=== PATIENT | male | born 1955 | race Caucasian/White ===

== ENCOUNTER 2017-12-01 06:19 | Day surgery (SDC) | payer BC ==
[2017-12-01] MEDS ORDERED: Sodium Chloride 0.9% 10 ML Syringe FLUSH PRN (06:45)
[2017-12-01] MEDS ORDERED: Lactated Ringers 1,000 ML IV SCH (06:45)
[2017-12-01] MEDS ORDERED: Propofol 200 MG/20 ML SDV IV ONE (08:00)
[2017-12-01] MEDS ORDERED: Midazolam 1 MG/ML 2 ML SDV IV ONE (08:00)
--- NOTE | 2017-12-01 08:37 | PCM.OPNOTE ---
- General Post-Op/Procedure Note Date of Surgery/Procedure: 12/01/17 Operative Procedure(s): c scope with bx Findings: sigmoid polyp descending colon polyp diverticulosis Pre Op Diagnosis: hx of colon polyps Post-Op Diagnosis: sigmoid polyp. descending colon polyp. diverticulosis Anesthesia Technique: MAC Primary Surgeon: Emmanuel He Anesthesia Provider: Dona Treviño Pathology: sigmoid polyp descending colon polyp Complications: None Condition: Good Free Text/Narrative:: see dictation #[id number]
--- NOTE | 2017-12-01 09:35 | OR ---
DATE OF OPERATION: 12/01/2017 SURGEON: Emmanuel He MD PROCEDURES PERFORMED: Colonoscopy with cold forceps biopsy. PREOPERATIVE DIAGNOSIS: Personal history of colon polyps. POSTOPERATIVE DIAGNOSES: Scattered diverticulosis and polyp of the descending colon and sigmoid colon. INDICATIONS FOR PROCEDURE: This is a 62-year-old white male who presents for a followup colonoscopy. He has a personal history of colon polyps, was offered and accepted C-scope. DESCRIPTION OF PROCEDURE: After an excellent IV sedation was administered, digital rectal exam was performed. No marked abnormality was noted. The flexible colonoscope was inserted and advanced to the cecum without difficulty. The prep was excellent. The following findings were noted. Ascending colon, occasional diverticula. Transverse colon, occasional diverticula. Descending colon, occasional diverticula and a small polypoid lesion, biopsied with cold biopsy forceps and sent for permanent. Sigmoid, very mild diverticulosis, small polyp biopsied with cold biopsy forceps and sent for permanent. Rectum unremarkable. Colon was deflated as the scope was removed. The patient tolerated the procedure well and was taken to Recovery. Results by letter. Follow up on the basis of pathology report. /[id number] /MODL
== END 2017-12-01 09:35 | disposition home or self-care (01) ==
LOC: FB.SDS 06:19
PROVIDERS: ATTEND Surgery
DX: Z12.11 Encounter for screening for malignant neoplasm of colon (principal); D12.4 Benign neoplasm of descending colon; D12.5 Benign neoplasm of sigmoid colon; J45.909 Unspecified asthma, uncomplicated; E78.5 Hyperlipidemia, unspecified; K57.30 Diverticulosis of large intestine without perforation or abscess without bleeding; Z86.010 Personal history of colon polyps; Z79.51 Long term (current) use of inhaled steroids; Z79.899 Other long term (current) drug therapy
CPT/HCPCS: 88305; J2250; J2704; J7120

== ENCOUNTER 2020-08-16 07:28 | Day surgery (SDC) | payer BC, MEDICARE ==
[2020-08-16] MEDS ORDERED: Lidocaine 2% 5 ML SDV INJECT ONE (07:29)
[2020-08-16] MEDS ORDERED: Midazolam 1 MG/ML 2 ML SDV IV ONE (07:29)
[2020-08-16] MEDS ORDERED: Propofol 200 MG/20 ML SDV IV ONE (07:29)
[2020-08-16] MEDS ORDERED: Sodium Chloride 0.9% 10 ML Syringe FLUSH PRN (07:30)
[2020-08-16] MEDS ORDERED: Lactated Ringers 1,000 ML IV SCH (07:30)
--- NOTE | 2020-08-16 09:29 | PCM.SN.2 ---
- Free Text/Narrative Note: Pt with persistent diarrhea. Hx of lymphocytic colitis in the past. There has been no response to treatment. He is for an egd as well as c scope. egd to be able to bx the duodenum. will attempt to intubate the terminal ileum as well. procedures and risks explained to the pt to include bleeding infection and perforation. expressed understanding and asks us to proceed.
--- NOTE | 2020-08-16 09:38 | PCM.OPNOTE ---
- General Post-Op/Procedure Note Date of Surgery/Procedure: 08/16/20 Operative Procedure(s): egd with cold forceps biopsy. c scope with intubation of terminal ileum with cold forceps biopsy Findings: nl appearing duodenum, terminal ileum gastritis irregular z line scattered diverticulosis nl appearing colonic mucosa. Pre Op Diagnosis: hx of lymphocytic colitis. hx of persistent diarrhea Anesthesia Technique: [facility] [place] Primary Surgeon: Emmanuel He Anesthesia Provider: Dona Treviño Pathology: duodenum stomach esophagus random bx of terminal ileum and colon Complications: None Condition: Good Free Text/Narrative:: see dictation #[id number]
--- NOTE | 2020-08-16 11:34 | OR ---
DATE OF OPERATION: 08/16/2020 SURGEON: Emmanuel He MD PROCEDURE PERFORMED: EGD and colonoscopy, both cold forceps biopsy. PREOPERATIVE DIAGNOSIS: History of lymphocytic colitis, persistent diarrhea despite treatment. POSTOPERATIVE DIAGNOSES: 1. Gastritis, irregular Z-line. 2. Normal-appearing terminal ileum, duodenum, and colonic mucosa, scattered colonic diverticulosis. INDICATIONS FOR PROCEDURE: Mr. Puga is a 64-year-old white male who has had a history of persistent diarrhea. He has a known history of lymphocytic colitis and the diarrhea has persisted despite treatment with various treatment regimens. He was offered and accepted an upper and lower endoscopy; one, to rule out possible celiac disease and two, to obtain random biopsies of his terminal ileum as well as colon to help in further diagnosis of what maybe the underlying cause of his loose stools. DESCRIPTION OF PROCEDURE: After an excellent IV sedation was administered by Anesthesia, a bite block was inserted. The flexible endoscope was passed without difficulty down the patient's esophagus into the stomach. Stomach was insufflated. Scope passed through the pylorus, second portion of duodenum and slowly withdrawn. The following findings were noted: The duodenum was grossly within normal limits. Random biopsies were taken to rule out celiac disease. Stomach, diffuse gastritis was noted. Random biopsies were taken. GE junction measured approximately 40 cm, but he did have an irregular Z-line and multiple biopsies were taken of the tongues of what appeared to be intestinal metaplasia. The remainder of the esophageal exam was unremarkable. Our attention was then turned to the patient's colon after deflating the stomach and removing it. Digital rectal exam was essentially unremarkable. The flexible colonoscope was inserted and advanced to the cecum. The prep was excellent. We were able to intubate the terminal ileum and advanced the scope approximately 5 cm. Following findings noted: The terminal ileum was unremarkable, random biopsies were taken. The colon unremarkable, random biopsies were taken. Transverse colon, mucosa was unremarkable. There was scattered diverticula. Random biopsies were taken. Descending colon, mucosa was unremarkable except for some occasional diverticula, random biopsies were taken. Sigmoid, occasional diverticula, random biopsies were taken. Rectum, unremarkable, random biopsies were taken. The patient tolerated the procedure well, was taken to recovery room. Results will be sent to the patient by letter. /[id number] /MARIAN
== END 2020-08-16 10:30 | disposition home or self-care (01) ==
LOC: FB.SDS 07:28
PROVIDERS: ATTEND Surgery
DX: K52.9 Noninfective gastroenteritis and colitis, unspecified (principal); K22.8 Other specified diseases of esophagus; K57.30 Diverticulosis of large intestine without perforation or abscess without bleeding; K62.89 Other specified diseases of anus and rectum; K63.0 Abscess of intestine; K20.90 Esophagitis, unspecified without bleeding; K29.50 Unspecified chronic gastritis without bleeding; J44.9 Chronic obstructive pulmonary disease, unspecified; Z79.899 Other long term (current) drug therapy; Z79.82 Long term (current) use of aspirin; Z98.890 Other specified postprocedural states
CPT/HCPCS: 00813-QZ; 88305; 88313; J2001; J2250; J2704; J7120